=== PATIENT | male | born 1985 | race African-American/Black ===

== ENCOUNTER 2017-12-19 20:24 | Emergency (ER) | payer SELFPAY | END 2017-12-19 21:08 | disposition home or self-care (01) | LOC: ER 20:24 | DX: J20.9 Acute bronchitis, unspecified (principal); J45.909 Unspecified asthma, uncomplicated; Z88.6 Allergy status to analgesic agent | CPT/HCPCS: 99283 ==

== ENCOUNTER 2018-05-01 08:44 | Emergency (ER) | payer SELFPAY ==
[2018-05-01 09:30] LABS: ADD MAN DIFF? NO
[2018-05-01 09:34] LABS: BASO # 0.1 x10^3/uL (0.0-0.2); BASO % 1 % (0-3); EOS # 1.1 x10^3/uL (0.0-0.7); EOS % 16 % (0-3); HEMATOCRIT 40.9 % (39.0-53.0); HEMOGLOBIN 14.1 g/dL (13.0-17.5); LYMPH # 2.6 x10^3/uL (1.0-4.8); LYMPH % 38 % (24-48); MEAN CORPUSCULAR HEMOGLOBIN 30 pg (25-35); MEAN CORPUSCULAR HGB CONC 34 g/dL (31-37); MEAN CORPUSCULAR VOLUME 86 fL (79-100); MONO # 0.7 x10^3/uL (0.0-1.1); MONO % 9 % (0-9); NEUT # 2.5 x10^3uL (1.8-7.7); NEUT % 36 % (31-73); PLATELET COUNT 368 x10^3/uL (140-400); RED BLOOD COUNT 4.73 x10^6/uL (4.30-5.70); RED CELL DISTRIBUTION WIDTH 11.7 % (11.5-14.5)
[2018-05-01] MEDS: ONDANSETRON PF 4 MG/2 ML VIAL. IV (09:40)
[2018-05-01] MEDS: PANTOPRAZOLE IV PUSH 40 MG VIAL. IVP (09:40)
[2018-05-01 09:41] LABS: ANION GAP 8 (6-14); BLOOD UREA NITROGEN 9 mg/dL (8-26); BUN/CREATININE RATIO 10 (6-20); CARBON DIOXIDE 27 mmol/L (21-32); CHLORIDE 104 mmol/L (98-107); CREATININE 0.9 mg/dL (0.7-1.3); GFR 119.1; GLUCOSE 97 mg/dL (70-99); SODIUM 139 mmol/L (136-145)
[2018-05-01] MEDS: DEXAMETHASONE SOD PHOS 20 MG/5 ML VIAL. IV (09:41)
[2018-05-01 09:46] LABS: ALBUMIN 3.9 g/dL (3.4-5.0); ALK PHOS 83 U/L (46-116); ALT (SGPT) 40 U/L (16-63); AST (SGOT) 21 U/L (15-37); LIPASE 102 U/L (73-393); TOTAL BILIRUBIN 0.8 mg/dL (0.2-1.0)
[2018-05-01] MEDS: IPRATRPIUM/ALBUTEROL 0.5/2.5MG 3 ML NEBU. NEB (09:47)
[2018-05-01 09:51] LABS: BILIRUBIN,URINE NEGATIVE (NEG); CLARITY,URINE CLEAR; COLOR,URINE YELLOW; GLUCOSE,URINE NEGATIVE (NEG); NITRITE,URINE NEGATIVE (NEG); PH,URINE 5.5; PROTEIN,URINE NEGATIVE (NEG-TRACE); UROBILINOGEN,URINE 0.2 mg/dL (0.2 mg/dL)
[2018-05-01 10:05] LABS: AMPHETAMINE/METHAMPHETAMINE NEG (NEG); BARBITURATES NEG (NEG); BENZODIAZEPINES NEG (NEG); CANNABINOIDS NEG (NEG); COCAINE NEG (NEG); METHADONE NEG (NEG); OPIATES NEG (NEG); PHENCYCLIDINE NEG (NEG)
[2018-05-01 10:06] LABS: BACTERIA,URINE FEW /HPF (0-FEW); ETHANOL, URINE NEG (NEG); RBC,URINE RARE /HPF (0-2); SQUAMOUS EPITHELIAL CELL,UR OCC /LPF; WBC,URINE OCC /HPF (0-4)
[2018-05-01 11:00] LABS: % EOS 7 % (0-5); % LYMPHS 59 % (24-48); % MONOS 5 % (0-10); % SEGS 29 % (35-66); PLT ESTIMATE ADEQUATE (ADEQUATE)
== END 2018-05-01 10:23 | disposition home or self-care (01) ==
LOC: ER 08:44
DX: T62.8X1A Toxic effect of other specified noxious substances eaten as food, accidental (unintentional), initial encounter (principal); J45.901 Unspecified asthma with (acute) exacerbation; Z88.8 Allergy status to other drugs, medicaments and biological substances; Y92.89 Other specified places as the place of occurrence of the external cause
CPT/HCPCS: 36415; 74022; 80053; 80307; 81001; 83690; 85007; 85025; 94640; 96374; 96375; 99285-25; C9113; J1100; J2405; J7620

== ENCOUNTER 2018-08-16 17:13 | Emergency (ER) | payer SELFPAY ==
[~2018-08-16] VITALS: Ht 172.7 cm; Wt 99.8 kg
[~2018-08-16 17:13] MED LIST: ALBU2.5V14 NEB; AZIT250T6 PO; DICY20TA3 PO; ONDA4TAB10 SL; PRED20TA PO; PRED50TA PO; PROVENTIL HFA6.7 GM IH; VENTOLIN HFA18 GM INH
[2018-08-16 17:29] VITALS: BP 139/76
--- NOTE | 2018-08-16 18:17 | PHYS DOC ---
Past Medical History Past Medical History: Asthma, Sinusitis, Other Additional Past Medical Histor: nasal polyps Past Surgical History: Other Additional Past Surgical Histo: nasal polyp removal Alcohol Use: Occasionally Drug Use: None Adult General Chief Complaint Chief Complaint: SORE THROAT HPI HPI Patient is a 33 year old AA male who presents to the ER with complaints of cough, congestion, and sore throat for the last week. Pt denies shortness of breath states that the cough is dry. He denies any measured fever but has felt hot at times. He denies any nausea, vomiting, abdominal pain, or rash. States that his left ear also hurts. Review of Systems Review of Systems Constitutional: reported tactile fever Eyes: Denies change in visual acuity, redness, or eye pain [] HENT: See HPI Respiratory: reports dry cough, denies SOA, reports mild wheezing Cardiovascular: No additional information not addressed in HPI [] GI: Denies abdominal pain, nausea, vomiting, or diarrhea [] Musculoskeletal: Denies back pain or joint pain [] Integument: Denies rash or skin lesions [] Neurologic: Denies headache, focal weakness or sensory changes [] All other systems were reviewed and found to be within normal limits, except as documented in this note. Current Medications Current Medications Current Medications Medications (Trade) Dose Ordered Sig/Yoshi Start Time Stop Time Status Last Admin Dose Admin Albuterol Sulfate (Ventolin Neb Soln) 2.5 mg 1X ONCE 08/16/18 18:30 08/16/18 18:31 DC 08/16/18 18:54 2.5 MG Allergies Allergies Allergies Coded Allergies Type Severity Reaction Last Updated Verified NSAIDS (Non-Steroidal Anti-Inflamma Allergy Severe SOA 03/31/14 No Physical Exam Physical Exam Constitutional: Well developed, well nourished, no acute distress, non-toxic appearance, obese. [] HENT: Normocephalic, atraumatic, bilateral external ears normal, bilateral TMs normal, tonsils 1+ no erythema, cobble stone appearance of posterior pharynx with post-nasal drainage. oropharynx moist, no oral exudates, nose normal. [] Eyes: PERRLA, conjunctiva normal, no discharge. [] Neck: Normal range of motion, no tenderness, supple, no stridor. [] Cardiovascular:Heart rate regular rhythm, no murmur [] Lungs & Thorax: Bilateral breath sounds scattered expiratory wheezes throughout , diminished in posterior bases bilat Skin: Warm, dry, no erythema, no rash. [] Extremities: No cyanosis, no clubbing, ROM intact, no edema. [] Neurologic: Alert and oriented X 3, normal motor function, normal sensory function, no focal deficits noted. [] Psychologic: Affect normal, judgement normal, mood normal. [] Current Patient Data Vital Signs Vital Signs Date Time Temp Pulse Resp B/P (MAP) Pulse Ox O2 Delivery O2 Flow Rate FiO2 08/16/18 18:55 Room Air 08/16/18 17:29 98.8 88 16 139/76 (97) 96 98.8 EKG EKG [] Radiology/Procedures Radiology/Procedures Pt's lung sounds CTA after breathing tx.[] Course & Med Decision Making Course & Med Decision Making Pertinent Labs and Imaging studies reviewed. (See chart for details) Dx: pharyngiits, bronchitis prescriptions for proair MDI, tessalon perrles, and prednisone 50 mg PO x5 days. Avoid airway irritants, increase clear fluids, use cool mist humidifier. Follow up with PCP in 1-2 days, return to ER if sx worsen. [] Dragon Disclaimer Dragon Disclaimer This electronic medical record was generated, in whole or in part, using a voice recognition dictation system. Departure Departure Impression: Primary Impression: Asthma exacerbation Additional Impressions: Pharyngitis, acute Bronchitis Disposition: 01 HOME, SELF-CARE Condition: STABLE Referrals: NO PCP (PCP) Patient Instructions: Acute Bronchitis, [id number], Viral and Bacterial Pharyngitis, [id number] Additional Instructions: Fill prescription(s) and use as directed. Cool mist humidifier in room at bedtime. Tylenol or ibuprofen prn pain/fever. Increase clear fluids. Avoid triggers such as smoke, fragrance, dust, and pollen. Follow-up with your primary care doctor in 1-2 days. Return to the emergency room if symptoms worsen. Scripts Prednisone (PREDNISONE) 50 Mg Tablet 1 TAB PO DAILY for 5 Days, #5 TAB 0 Refills Prov: COTY BENNETT APRN 08/16/18 Albuterol Sulfate (PROAIR HFA INHALER) 8.5 Gm Hfa.aer.ad 1-2 PUFF INH PRN Q6HRS PRN for SHORTNESS OF BREATH for 30 Days, #1 INHALER 1 Refill Prov: COTY BENNETT FURNACE INSTALLER 08/16/18 Benzonatate (TESSALON PERLE) 100 Mg Capsule 100 MG PO TID PRN for COUGH for 3 Days, #21 CAP 0 Refills Prov: COTY BENNETT FURNACE INSTALLER 08/16/18 Problem Qualifiers Primary Impression: Asthma exacerbation Asthma severity: mild Asthma persistence: intermittent Qualified Codes: J45.21 - Mild intermittent asthma with (acute) exacerbation Additional Impressions: Pharyngitis, acute Pharyngitis/tonsillitis etiology: unspecified etiology Qualified Codes: J02.9 - Acute pharyngitis, unspecified COTY BENNETT FURNACE INSTALLER Aug 16, 2018 18:17
[2018-08-16] MEDS ORDERED: ALBUTEROL SULFATE 2.5 MG/3 ML NEBU. NEB ONE (18:30)
[2018-08-16] MEDS ORDERED: PROAIR HFA8.5 GM INH (19:16)
[2018-08-16] MEDS ORDERED: BENZ100C PO (19:16)
[2018-08-16] MEDS ORDERED: PRED50TA PO (19:16)
== END 2018-08-16 19:23 | disposition home or self-care (01) ==
LOC: ER 17:13
DX: J45.21 Mild intermittent asthma with (acute) exacerbation (principal); Z88.6 Allergy status to analgesic agent
CPT/HCPCS: 87070; 87880; 94640; 99283; J7613

== ENCOUNTER 2018-08-21 01:11 | Emergency (ER) | payer SELFPAY ==
[~2018-08-21] VITALS: Ht 83.8 cm; Wt 99.8 kg
[~2018-08-21 01:11] MED LIST changes: +BENZ100C PO; +PROAIR HFA8.5 GM INH
[2018-08-21 01:22] VITALS: BP 150/87
[2018-08-21] MEDS ORDERED: GUAI-40 PO (01:43)
--- NOTE | 2018-08-21 06:17 | PHYS DOC ---
Past Medical History Past Medical History: Asthma, Sinusitis, Other Additional Past Medical Histor: nasal polyps Past Surgical History: Other Additional Past Surgical Histo: nasal polyp removal Alcohol Use: Occasionally Drug Use: None Adult General Chief Complaint Chief Complaint: SORE THROAT HPI HPI Patient is a 33 year old AA with history of asthma, recurrent sinusitis who presents with nasal congestion, rhinorrhea and sore throat prior to ED arrival. Patient states he has sleep apnea any sometimes awake feeling that he is gagging on phlegm which is occurred prior to ED arrival. Reports cough, some for dizziness this and increased sinus drainage. No fever chills, nausea vomiting or sweats. Denies any wheezing. [] Review of Systems Review of Systems Review symptoms as per history of present illness. All other review symptoms are negative. All other systems were reviewed and found to be within normal limits, except as documented in this note. Allergies Allergies Allergies Coded Allergies Type Severity Reaction Last Updated Verified NSAIDS (Non-Steroidal Anti-Inflamma Allergy Severe SOA 03/31/14 No Physical Exam Physical Exam Constitutional: Well developed, well nourished, no acute distress, non-toxic appearance. [] HENT: Normocephalic, atraumatic, bilateral external ears normal, oropharynx moist, no oral exudates, nose, congestion, inflamed mucosa with clear rhinorrhea [] Eyes: PERRLA, EOMI, conjunctiva normal, no discharge. [] Neck: Normal range of motion, no tenderness, supple, no stridor. [] Cardiovascular:Heart rate regular rhythm, no murmur [] Lungs & Thorax: Bilateral breath sounds clear to auscultation [] Abdomen: Bowel sounds normal, soft, no tenderness, no masses, no pulsatile masses. [] Skin: Warm, dry, no erythema, no rash. [] Back: No tenderness, no CVA tenderness. [] Extremities: No tenderness, no cyanosis, no clubbing, ROM intact, no edema. [] Neurologic: Alert and oriented X 3, normal motor function, normal sensory function, no focal deficits noted. [] Psychologic: Affect normal, judgement normal, mood normal. [] Current Patient Data Vital Signs Vital Signs Date Time Temp Pulse Resp B/P (MAP) Pulse Ox O2 Delivery O2 Flow Rate FiO2 08/21/18 01:22 98.7 77 16 150/87 (108) 97 Room Air 98.7 EKG EKG [] Radiology/Procedures Radiology/Procedures [] Course & Med Decision Making Course & Med Decision Making Pertinent Labs and Imaging studies reviewed. (See chart for details) [Pharyngitis with postnasal drip. Recommend supportive care with PCP follow-up.] Lovely Disclaimer Lovely Disclaimer This electronic medical record was generated, in whole or in part, using a voice recognition dictation system. Departure Departure Impression: Primary Impression: Upper respiratory infection Additional Impression: Pharyngitis, acute Disposition: HOME, SELF-CARE Condition: GOOD Patient Instructions: Upper Respiratory Infection, Adult, [id number], Sore Throat, [id number] Additional Instructions: Please continue prednisone and take Mucinex D as prescribed. Gargle salt water and take Tylenol as needed for throat pain. Follow-up with local primary care physician in 1-2 days for reevaluation.. Scripts Guaifenesin/Pseudoephedrne Hcl (MUCINEX D ER TABLET) 1 Each Tab.er.12h 1 TAB PO BID, #20 TAB Prov: HOLLY JONES DO 08/21/18 Problem Qualifiers HOLLY JONES DO Aug 21, 2018 06:17
== END 2018-08-21 01:50 | disposition home or self-care (01) ==
LOC: ER 01:11
DX: J02.9 Acute pharyngitis, unspecified (principal); J45.909 Unspecified asthma, uncomplicated; R42 Dizziness and giddiness; Z88.8 Allergy status to other drugs, medicaments and biological substances
CPT/HCPCS: 99283

== ENCOUNTER 2019-03-01 01:32 | Emergency (ER) | payer SELFPAY ==
[~2019-03-01] VITALS: Ht 172.7 cm; Wt 99.8 kg
[~2019-03-01 01:32] MED LIST changes: +ALBU2.5V8 IH; +ALBU2.5V8 INH; +FLUT1DIS3 IH; +GUAI-40 PO; +OSEL75CA PO; -PROAIR HFA8.5 GM INH; -PROVENTIL HFA6.7 GM IH
--- NOTE | 2019-03-01 02:13 | PHYS DOC ---
Past Medical History Past Medical History: Asthma Additional Past Medical Histor: FREQUENT SINUS INFECTIONS Past Surgical History: Other Additional Past Surgical Histo: NASAL POLYP REMOVAL Alcohol Use: Occasionally Drug Use: None Adult General Chief Complaint Chief Complaint: ABDOMINAL PAIN HPI HPI Patient is a 33 year old male who presents with with complaining of abdominal pain. Patient complaining of abdominal bloating for the last 6 days as a constant problem that getting force after eating and complaining of episodes of vomiting for the last 2 days. Patient states he has abdominal bloating and pressure on his chest and caused his asthma acting up for the same time. Patient complaining of shortness of breath and dry cough and chills without fever. Patient denies urinary symptoms, diarrhea and constipation, chest pain. Patient states she had the same episode of abdominal pain and asthma exacerbation previously and had negative GI evaluation. Patient doesn't have a nebulizer medication at home and took inhaler without improvement of his condition. Patient denies using drugs or smoking cigarettes. Review of Systems Review of Systems Constitutional: Denies fever or chills [] Eyes: Denies change in visual acuity, redness, or eye pain [] HENT: Denies nasal congestion or sore throat [] Respiratory: Reports cough and shortness of breath Cardiovascular: No additional information not addressed in HPI [] GI: Reports abdominal pain, nausea, vomiting, denies bloody stools or diarrhea [] : Denies dysuria or hematuria [] Musculoskeletal: Denies back pain or joint pain [] Integument: Denies rash or skin lesions [] Neurologic: Denies headache, focal weakness or sensory changes [] Endocrine: Denies polyuria or polydipsia [] All other systems were reviewed and found to be within normal limits, except as documented in this note. Current Medications Current Medications Current Medications Medications (Trade) Dose Ordered Sig/Yoshi Start Time Stop Time Status Last Admin Dose Admin Albuterol/ Ipratropium (Duoneb) 3 ml 1X ONCE 03/01/19 02:30 03/01/19 02:31 DC 03/01/19 02:30 3 ML Info (CONTRAST GIVEN -- Rx MONITORING) 1 each PRN DAILY PRN 03/01/19 03:30 03/03/19 03:29 Iohexol (Omnipaque 300 Mg/ml) 75 ml 1X ONCE 03/01/19 03:30 03/01/19 03:31 DC 03/01/19 03:26 75 ML Methylprednisolone Sodium Succinate (SOLU-Medrol 125MG VIAL) 125 mg 1X ONCE 03/01/19 02:30 03/01/19 02:31 DC 03/01/19 02:40 125 MG Sodium Chloride 1,000 ml @ 1,000 mls/hr Q1H 03/01/19 02:15 03/01/19 03:14 DC 03/01/19 02:40 1,000 MLS/HR Allergies Allergies Allergies Coded Allergies Type Severity Reaction Last Updated Verified NSAIDS (Non-Steroidal Anti-Inflamma Allergy Severe SOA 10/11/18 Yes Physical Exam Physical Exam Constitutional: Well developed, well nourished, moderate distress, non-toxic appearance. [] HENT: Normocephalic, atraumatic, oropharynx moist, no oral exudates, nose normal. [] Eyes: PERRLA, EOMI, conjunctiva normal, no discharge. [] Neck: Normal range of motion, no tenderness, supple, no stridor. [] Cardiovascular: Tachycardia, no murmur [] Lungs & Thorax: Mild respiratory distress with tachypnea, wheezing and rhonchi Abdomen: Bowel sounds hyperactive, mildly distended with gas,soft, no tenderness, no masses, no pulsatile masses. [] Skin: Warm, dry, no erythema, no rash. [] Back: No tenderness, no CVA tenderness. [] Extremities: No tenderness, no cyanosis, no clubbing, ROM intact, no edema. [] Neurologic: Alert and oriented X 3, normal motor function, normal sensory function, no focal deficits noted. [] Psychologic: Affect normal, judgement normal, mood normal. [] Current Patient Data Vital Signs Vital Signs Date Time Temp Pulse Resp B/P (MAP) Pulse Ox O2 Delivery O2 Flow Rate FiO2 03/01/19 02:32 94 Nasal Cannula 1.0 03/01/19 01:42 98.2 119 26 123/92 (102) 98.2 Lab Values Laboratory Tests Test 03/01/19 02:25 03/01/19 03:05 White Blood Count 7.9 x10^3/uL (4.0-11.0) Red Blood Count 4.40 x10^6/uL (4.30-5.70) Hemoglobin 12.6 g/dL (13.0-17.5) L Hematocrit 37.3 % (39.0-53.0) L Mean Corpuscular Volume 85 fL (79-100) Mean Corpuscular Hemoglobin 29 pg (25-35) Mean Corpuscular Hemoglobin Concent 34 g/dL (31-37) Red Cell Distribution Width 12.3 % (11.5-14.5) Platelet Count 482 x10^3/uL (140-400) H Neutrophils (%) (Auto) 31 % (31-73) Lymphocytes (%) (Auto) 43 % (24-48) Monocytes (%) (Auto) 6 % (0-9) Eosinophils (%) (Auto) 18 % (0-3) H Basophils (%) (Auto) 1 % (0-3) Neutrophils # (Auto) 2.4 x10^3uL (1.8-7.7) Lymphocytes # (Auto) 3.4 x10^3/uL (1.0-4.8) Monocytes # (Auto) 0.5 x10^3/uL (0.0-1.1) Eosinophils # (Auto) 1.4 x10^3/uL (0.0-0.7) H Basophils # (Auto) 0.1 x10^3/uL (0.0-0.2) Sodium Level 142 mmol/L (136-145) Potassium Level 3.8 mmol/L (3.5-5.1) Chloride Level 106 mmol/L (98-107) Carbon Dioxide Level 24 mmol/L (21-32) Anion Gap 12 (6-14) Blood Urea Nitrogen 14 mg/dL (8-26) Creatinine 1.0 mg/dL (0.7-1.3) Estimated GFR (Cockcroft-Gault) 104.8 BUN/Creatinine Ratio 14 (6-20) Glucose Level 117 mg/dL (70-99) H Lactic Acid Level 1.5 mmol/L (0.4-2.0) Calcium Level 8.7 mg/dL (8.5-10.1) Total Bilirubin 0.2 mg/dL (0.2-1.0) Aspartate Amino Transferase (AST) 22 U/L (15-37) Alanine Aminotransferase (ALT) 51 U/L (16-63) Alkaline Phosphatase 83 U/L (46-116) Creatine Kinase 254 U/L (39-308) Total Protein 7.7 g/dL (6.4-8.2) Albumin 3.2 g/dL (3.4-5.0) L Albumin/Globulin Ratio 0.7 (1.0-1.7) L Lipase 93 U/L (73-393) Urine Collection Type Void Urine Color Yellow Urine Clarity Clear Urine pH 5.5 Urine Specific [place] 1.025 Urine Protein Negative mg/dL (NEG-TRACE) Urine Glucose (UA) Negative mg/dL (NEG) Urine Ketones (Stick) Negative mg/dL (NEG) Urine Blood Negative (NEG) Urine Nitrite Negative (NEG) Urine Bilirubin Negative (NEG) Urine Urobilinogen Dipstick 0.2 mg/dL (0.2 mg/dL) Urine Leukocyte Esterase Negative (NEG) Urine RBC Occ /HPF (0-2) Urine WBC 1-4 /HPF (0-4) Urine Squamous Epithelial Cells Few /LPF Urine Bacteria 0 /HPF (0-FEW) Urine Cellular Casts Occ /HPF Urine Hyaline Casts Moderate /HPF Urine Granular Casts Few /HPF Urine Mucus Mod /LPF Urine Opiates Screen Neg (NEG) Urine Methadone Screen Neg (NEG) Urine Barbiturates Neg (NEG) Urine Phencyclidine Screen Neg (NEG) Urine Amphetamine/Methamphetamine Neg (NEG) Urine Benzodiazepines Screen Neg (NEG) Urine Cocaine Screen Neg (NEG) Urine Cannabinoids Screen Neg (NEG) Urine Ethyl Alcohol Neg (NEG) Laboratory Tests 03/01/19 02:25 Laboratory Tests 03/01/19 02:25 EKG EKG [] Radiology/Procedures Radiology/Procedures [facility] [address], [place] [id number] IMAGING REPORT Signed PATIENT: DOUGLAS CARPENTER ACCOUNT: [id number] : 1985 LOCATION: ER AGE: 33 SEX: M EXAM STATUS: REG ER ORD. PHYSICIAN: KARRIE DUGAN MD REASON: shortness of breath and abdominal pain PROCEDURE: CT ABD PELV W/ IV CONTRST ONLY PQRS Compliance statement: One or more of the following individualized dose reduction techniques were utilized for this examination: 1. Automated exposure control. 2. Adjustment of the mA and/or kV according to patient size. 3. Use of iterative reconstruction technique. Indication:Shortness of breath and abdominal pain TECHNIQUE: CT abdomen and pelvis with IV contrast with multiplanar reformats. COMPARISON: None FINDINGS: Heart is normal in size. No pericardial or pleural effusion. Clear lung bases. Liver, spleen, gallbladder, pancreas, adrenals and kidneys within normal limits. No free pelvic fluid or ascites. No enlarged retroperitoneal or pelvic adenopathy. No bowel obstruction. Normal appendix. The prostate and seminal vesicles show no large mass. Urinary bladder demonstrates no radiopaque stone. No pneumoperitoneum. No suspicious bony lesion. IMPRESSION: No acute findings. Electronically signed by: Rancho Mcmahon DO (03/01/2019 3:31 AM) [facility] DICTATED and SIGNED BY: RANCHO MCMAHON DO DATE: 03/01/19 033 Chest x-ray interpreted by me and did not show acute change compared to previous x-ray. Course & Med Decision Making Course & Med Decision Making Pertinent Labs and Imaging studies reviewed. (See chart for details) Evaluation of patient in ER showed 33-year-old male patient with complaining of abdominal pain and asthma attack. Patient had O2 sat of 91% at room air that improved to 94% with 2 L of oxygen. Patient had unremarkable abdominal exam and labs and chest x-ray and CT of abdomen. Patient felt better with treatment in ER and his O2 sat was 94% without oxygen. Plan discharge patient home to diagnose of asthma exacerbation. Dragon Disclaimer Dragon Disclaimer This electronic medical record was generated, in whole or in part, using a voice recognition dictation system. Departure Departure Impression: Primary Impression: Asthma exacerbation Additional Impressions: Abdominal pain Anxiety Disposition: 01 HOME, SELF-CARE (at 0355) Condition: IMPROVED Referrals: NO PCP (PCP) Patient Instructions: Abdominal Pain, Anxiety and Panic Attacks, Asthma Attacks, Prevention, Asthma, Acute Bronchospasm Additional Instructions: Drink plenty of liquids Follow-up with your primary care physician in 3-5 days Return to ER if not getting better Scripts Ranitidine Hcl (ZANTAC) 150 Mg Tablet 1 TAB PO BID, #14 TAB Prov: KARRIE DUGAN MD 03/01/19 Albuterol Sulfate (PROAIR HFA INHALER) 8.5 Gm Hfa.aer.ad 2 PUFF INH PRN Q6HRS PRN for SHORTNESS OF BREATH, #1 INHALER 0 Refills Prov: KARRIE DUGAN MD 03/01/19 Methylprednisolone (MEDROL) 4 Mg Tab.ds.pk 1 PKG PO UD for inflammation, #1 PKG Prov: KARRIE DUGAN MD 03/01/19 Albuterol Sulfate (ALBUTEROL SULFATE NEB SOLN) 2.5 Mg/3 Ml Vial.neb 1 VIAL NEB Q6HRS PRN for SHORTNESS OF BREATH, #25 VIAL Prov: KARRIE DUGAN MD 03/01/19 Problem Qualifiers Primary Impression: Asthma exacerbation Asthma severity: moderate Asthma persistence: unspecified Qualified Codes: J45.901 - Unspecified asthma with (acute) exacerbation Additional Impressions: Abdominal pain Abdominal location: unspecified location Qualified Codes: R10.9 - Unspecified abdominal pain KARRIE DUGAN MD March 01, 2019 02:13
[2019-03-01] MEDS ORDERED: IV NORMAL SALINE 1000ML BAG 1,000 ML IV SCH (02:15)
[2019-03-01] MEDS ORDERED: IPRATRPIUM/ALBUTEROL 0.5/2.5MG 3 ML NEBU. NEB ONE (02:30)
[2019-03-01] MEDS ORDERED: methylPREDNISolone SOD SUCC PF 125 MG/2 ML VIAL. IV ONE (02:30)
[2019-03-01 02:43] LABS: BASO # 0.1 x10^3/uL (0.0-0.2); BASO % 1 % (0-3); EOS # 1.4 x10^3/uL (0.0-0.7); EOS % 18 % (0-3); HEMATOCRIT 37.3 % (39.0-53.0); HEMOGLOBIN 12.6 g/dL (13.0-17.5); LYMPH # 3.4 x10^3/uL (1.0-4.8); LYMPH % 43 % (24-48); MEAN CORPUSCULAR HEMOGLOBIN 29 pg (25-35); MEAN CORPUSCULAR HGB CONC 34 g/dL (31-37); MEAN CORPUSCULAR VOLUME 85 fL (79-100); MONO # 0.5 x10^3/uL (0.0-1.1); MONO % 6 % (0-9); NEUT # 2.4 x10^3uL (1.8-7.7); NEUT % 31 % (31-73); PLATELET COUNT 482 x10^3/uL (140-400); RED CELL DISTRIBUTION WIDTH 12.3 % (11.5-14.5); WHITE BLOOD COUNT 7.9 x10^3/uL (4.0-11.0)
[2019-03-01 02:54] LABS: CALCIUM 8.7 mg/dL (8.5-10.1); GFR 104.8; POTASSIUM 3.8 mmol/L (3.5-5.1)
[2019-03-01 03:00] LABS: ALBUMIN 3.2 g/dL (3.4-5.0); ALBUMIN/GLOBULIN RATIO 0.7 (1.0-1.7); TOTAL BILIRUBIN 0.2 mg/dL (0.2-1.0); TOTAL PROTEIN 7.7 g/dL (6.4-8.2)
[2019-03-01 03:17] LABS: BILIRUBIN,URINE NEGATIVE (NEG); CLARITY,URINE CLEAR; COLOR,URINE YELLOW; NITRITE,URINE NEGATIVE (NEG); PH,URINE 5.5; PROTEIN,URINE NEGATIVE (NEG-TRACE); UROBILINOGEN,URINE 0.2 mg/dL (0.2 mg/dL)
[2019-03-01 03:22] LABS: BARBITURATES NEG (NEG); BENZODIAZEPINES NEG (NEG); CANNABINOIDS NEG (NEG); COCAINE NEG (NEG); METHADONE NEG (NEG); OPIATES NEG (NEG); PHENCYCLIDINE NEG (NEG)
[2019-03-01 03:24] LABS: AMPHETAMINE/METHAMPHETAMINE NEG (NEG)
[2019-03-01 03:26] LABS: BACTERIA,URINE 0 /HPF (0-FEW); HYALINE CASTS, URINE MODERATE /HPF; RBC,URINE OCC /HPF (0-2); SQUAMOUS EPITHELIAL CELL,UR FEW /LPF
[2019-03-01 03:27] LABS: GRANULAR CASTS,URINE FEW /HPF
[2019-03-01] MEDS ORDERED: CONTRAST GIVEN. MC PRN (03:30)
[2019-03-01] MEDS ORDERED: IOHEXOL 300 MG/ML 100ML VIAL. IV ONE (03:30)
--- NOTE | 2019-03-01 03:34 | RAD ---
PQRS Compliance statement: One or more of the following individualized dose reduction techniques were utilized for this examination: 1. Automated exposure control. 2. Adjustment of the mA and/or kV according to patient size. 3. Use of iterative reconstruction technique. Indication:Shortness of breath and abdominal pain TECHNIQUE: CT abdomen and pelvis with IV contrast with multiplanar reformats. COMPARISON: None FINDINGS: Heart is normal in size. No pericardial or pleural effusion. Clear lung bases. Liver, spleen, gallbladder, pancreas, adrenals and kidneys within normal limits. No free pelvic fluid or ascites. No enlarged retroperitoneal or pelvic adenopathy. No bowel obstruction. Normal appendix. The prostate and seminal vesicles show no large mass. Urinary bladder demonstrates no radiopaque stone. No pneumoperitoneum. No suspicious bony lesion. IMPRESSION: No acute findings. Electronically signed by: Rancho Velasco DO (03/01/2019 3:31 AM) [facility]
[2019-03-01 03:37] VITALS: BP 125/73
[2019-03-01] MEDS ORDERED: METH4TAB2 PO (03:58)
[2019-03-01] MEDS ORDERED: RANI-376 PO (03:58)
[2019-03-01] MEDS ORDERED: ALBU2.5V8 INH (03:58)
[2019-03-01] MEDS ORDERED: ALBU2.5V5 NEB (03:58)
--- NOTE | 2019-03-01 08:05 | RAD ---
CHEST PA LATERAL History: Shortness of breath, abdominal pain Comparison: October 09, 2018; May 09, 2010. Findings: 2 views of the chest are submitted. There is no new lobar consolidation, pleural fluid, pneumothorax. Heart size is stable, within normal limits. Some fullness of the hilar regions bilaterally is similar dating back to 2009 exam. Impression: 1. No acute radiographic abnormality is identified. Electronically signed by: Tonny Rodriguez MD (03/01/2019 8:02 AM) [facility]
== END 2019-03-01 04:10 | disposition home or self-care (01) ==
LOC: ER 01:32
DX: J45.901 Unspecified asthma with (acute) exacerbation (principal); F41.9 Anxiety disorder, unspecified; R14.0 Abdominal distension (gaseous); R00.0 Tachycardia, unspecified; R06.03 Acute respiratory distress; R11.2 Nausea with vomiting, unspecified; Z88.8 Allergy status to other drugs, medicaments and biological substances
CPT/HCPCS: 36415; 71046; 74177; 80053; 80307; 81001; 82550; 83605; 83690; 85025; 87040; 94640; 96361; 96374; 99285; J2930; J7030; J7620; Q9967

== ENCOUNTER 2019-04-09 16:42 | Emergency (ER) | payer SELFPAY ==
[~2019-04-09] VITALS: Ht 172.7 cm; Wt 99.8 kg
[~2019-04-09 16:42] MED LIST changes: +ALBU2.5V5 NEB; +METH4TAB2 PO; +RANI-376 PO
[2019-04-09 18:01] LABS: BASO # 0.1 x10^3/uL (0.0-0.2); BASO % 1 % (0-3); EOS # 1.3 x10^3/uL (0.0-0.7); EOS % 15 % (0-3); HEMATOCRIT 37.4 % (39.0-53.0); HEMOGLOBIN 12.7 g/dL (13.0-17.5); LYMPH # 3.4 x10^3/uL (1.0-4.8); LYMPH % 40 % (24-48); MEAN CORPUSCULAR HEMOGLOBIN 30 pg (25-35); MEAN CORPUSCULAR HGB CONC 34 g/dL (31-37); MEAN CORPUSCULAR VOLUME 87 fL (79-100); MONO # 0.7 x10^3/uL (0.0-1.1); MONO % 8 % (0-9); NEUT # 2.9 x10^3uL (1.8-7.7); NEUT % 35 % (31-73); PLATELET COUNT 419 x10^3/uL (140-400); RED BLOOD COUNT 4.29 x10^6/uL (4.30-5.70); RED CELL DISTRIBUTION WIDTH 13.2 % (11.5-14.5); WHITE BLOOD COUNT 8.4 x10^3/uL (4.0-11.0)
[2019-04-09] MEDS ORDERED: methylPREDNISolone SOD SUCC PF 125 MG/2 ML VIAL. IV ONE (18:15)
[2019-04-09] MEDS ORDERED: IPRATRPIUM/ALBUTEROL 0.5/2.5MG 3 ML NEBU. NEB ONE (18:15)
[2019-04-09 18:17] LABS: CALCIUM 9.2 mg/dL (8.5-10.1); CREATININE 0.9 mg/dL (0.7-1.3); GFR 118.3; POTASSIUM 3.6 mmol/L (3.5-5.1)
[2019-04-09 18:29] LABS: ALBUMIN 3.6 g/dL (3.4-5.0); ALBUMIN/GLOBULIN RATIO 0.9 (1.0-1.7); MAGNESIUM 1.7 mg/dL (1.8-2.4); TOTAL BILIRUBIN 0.6 mg/dL (0.2-1.0); TOTAL PROTEIN 7.6 g/dL (6.4-8.2)
[2019-04-09 19:26] LABS: BILIRUBIN,URINE NEGATIVE (NEG); CLARITY,URINE CLEAR; COLOR,URINE YELLOW; NITRITE,URINE NEGATIVE (NEG); PH,URINE 5.5; PROTEIN,URINE NEGATIVE (NEG-TRACE); UROBILINOGEN,URINE 0.2 mg/dL (0.2 mg/dL)
[2019-04-09 19:33] LABS: BACTERIA,URINE 0 /HPF (0-FEW); RBC,URINE 0 /HPF (0-2); WBC,URINE 0 /HPF (0-4)
[2019-04-09] MEDS ORDERED: PRED50TA PO (19:48)
[2019-04-09] MEDS ORDERED: DOXY100C14 PO (19:48)
[2019-04-09] MEDS ORDERED: ALBU2.5V5 NEB (19:48)
--- NOTE | 2019-04-09 19:49 | PHYS DOC ---
Past Medical History Past Medical History: Asthma Additional Past Medical Histor: FREQUENT SINUS INFECTIONS Past Surgical History: Other Additional Past Surgical Histo: NASAL POLYP REMOVAL Alcohol Use: Occasionally Drug Use: None Adult General Chief Complaint Chief Complaint: ABDOMINAL PAIN HPI HPI Patient is a 33 year old [f__sex] who presents with [] Review of Systems Review of Systems Constitutional: Denies fever or chills [] Eyes: Denies change in visual acuity, redness, or eye pain [] HENT: Denies nasal congestion or sore throat [] Respiratory: Denies cough or shortness of breath [] Cardiovascular: No additional information not addressed in HPI [] GI: Denies abdominal pain, nausea, vomiting, bloody stools or diarrhea [] : Denies dysuria or hematuria [] Musculoskeletal: Denies back pain or joint pain [] Integument: Denies rash or skin lesions [] Neurologic: Denies headache, focal weakness or sensory changes [] Endocrine: Denies polyuria or polydipsia [] All other systems were reviewed and found to be within normal limits, except as documented in this note. Current Medications Current Medications Current Medications Medications (Trade) Dose Ordered Sig/Yoshi Start Time Stop Time Status Last Admin Dose Admin Albuterol/ Ipratropium (Duoneb) 3 ml 1X ONCE 04/09/19 18:15 04/09/19 18:16 DC 04/09/19 18:19 3 ML Methylprednisolone Sodium Succinate (SOLU-Medrol 125MG VIAL) 125 mg 1X ONCE 04/09/19 18:15 04/09/19 18:16 DC 04/09/19 18:09 125 MG Multi-Ingredient Mouthwash/Gargle (Gi Cocktail) 20 ml 1X ONCE 04/09/19 20:00 04/09/19 20:01 DC 04/09/19 20:01 20 ML Allergies Allergies Allergies Coded Allergies Type Severity Reaction Last Updated Verified NSAIDS (Non-Steroidal Anti-Inflamma Allergy Severe SOA 10/11/18 Yes Physical Exam Physical Exam Constitutional: Well developed, well nourished, no acute distress, non-toxic appearance. [] HENT: Normocephalic, atraumatic, bilateral external ears normal, oropharynx moist, no oral exudates, nose normal. [] Eyes: PERRLA, EOMI, conjunctiva normal, no discharge. [] Neck: Normal range of motion, no tenderness, supple, no stridor. [] Cardiovascular:Heart rate regular rhythm, no murmur [] Lungs & Thorax: Bilateral breath sounds clear to auscultation [] Abdomen: Bowel sounds normal, soft, no tenderness, no masses, no pulsatile masses. [] Skin: Warm, dry, no erythema, no rash. [] Back: No tenderness, no CVA tenderness. [] Extremities: No tenderness, no cyanosis, no clubbing, ROM intact, no edema. [] Neurologic: Alert and oriented X 3, normal motor function, normal sensory function, no focal deficits noted. [] Psychologic: Affect normal, judgement normal, mood normal. [] Current Patient Data Vital Signs Vital Signs Date Time Temp Pulse Resp B/P (MAP) Pulse Ox O2 Delivery O2 Flow Rate FiO2 04/09/19 20:00 86 20 145/91 (109) 95 Room Air 04/09/19 17:40 97.8 97.8 Lab Values Laboratory Tests Test 04/09/19 17:33 04/09/19 19:10 White Blood Count 8.4 x10^3/uL (4.0-11.0) Red Blood Count 4.29 x10^6/uL (4.30-5.70) L Hemoglobin 12.7 g/dL (13.0-17.5) L Hematocrit 37.4 % (39.0-53.0) L Mean Corpuscular Volume 87 fL (79-100) Mean Corpuscular Hemoglobin 30 pg (25-35) Mean Corpuscular Hemoglobin Concent 34 g/dL (31-37) Red Cell Distribution Width 13.2 % (11.5-14.5) Platelet Count 419 x10^3/uL (140-400) H Neutrophils (%) (Auto) 35 % (31-73) Lymphocytes (%) (Auto) 40 % (24-48) Monocytes (%) (Auto) 8 % (0-9) Eosinophils (%) (Auto) 15 % (0-3) H Basophils (%) (Auto) 1 % (0-3) Neutrophils # (Auto) 2.9 x10^3uL (1.8-7.7) Lymphocytes # (Auto) 3.4 x10^3/uL (1.0-4.8) Monocytes # (Auto) 0.7 x10^3/uL (0.0-1.1) Eosinophils # (Auto) 1.3 x10^3/uL (0.0-0.7) H Basophils # (Auto) 0.1 x10^3/uL (0.0-0.2) Sodium Level 141 mmol/L (136-145) Potassium Level 3.6 mmol/L (3.5-5.1) Chloride Level 106 mmol/L (98-107) Carbon Dioxide Level 26 mmol/L (21-32) Anion Gap 9 (6-14) Blood Urea Nitrogen 15 mg/dL (8-26) Creatinine 0.9 mg/dL (0.7-1.3) Estimated GFR (Cockcroft-Gault) 118.3 BUN/Creatinine Ratio 17 (6-20) Glucose Level 84 mg/dL (70-99) Calcium Level 9.2 mg/dL (8.5-10.1) Magnesium Level 1.7 mg/dL (1.8-2.4) L Total Bilirubin 0.6 mg/dL (0.2-1.0) Aspartate Amino Transferase (AST) 16 U/L (15-37) Alanine Aminotransferase (ALT) 29 U/L (16-63) Alkaline Phosphatase 77 U/L (46-116) Troponin I Quantitative < 0.017 ng/mL (0.000-0.055) Total Protein 7.6 g/dL (6.4-8.2) Albumin 3.6 g/dL (3.4-5.0) Albumin/Globulin Ratio 0.9 (1.0-1.7) L Lipase 157 U/L (73-393) Urine Collection Type Unknown Urine Color Yellow Urine Clarity Clear Urine pH 5.5 Urine Specific [place] 1.025 Urine Protein Negative mg/dL (NEG-TRACE) Urine Glucose (UA) Negative mg/dL (NEG) Urine Ketones (Stick) Negative mg/dL (NEG) Urine Blood Negative (NEG) Urine Nitrite Negative (NEG) Urine Bilirubin Negative (NEG) Urine Urobilinogen Dipstick 0.2 mg/dL (0.2 mg/dL) Urine Leukocyte Esterase Negative (NEG) Urine RBC 0 /HPF (0-2) Urine WBC 0 /HPF (0-4) Urine Bacteria 0 /HPF (0-FEW) Urine Mucus Marked /LPF Laboratory Tests 04/09/19 17:33 Laboratory Tests 04/09/19 17:33 EKG EKG [] Radiology/Procedures Radiology/Procedures [] Course & Med Decision Making Course & Med Decision Making Pertinent Labs and Imaging studies reviewed. (See chart for details) 1920: Pt's chest xray was viewed by Dr. Alba molina. atypical pneumonia pattern in lower lobes. Discussed was discussed with patient. On reevaluation following 2 DuoNeb treatments and dose of IV Solu-Medrol patient has clear bilateral lung sounds. Patient is in no visible distress. Patient does continue to complain of mid epigastric discomfort again discussed possible relation to his ongoing coughing episodes and use of accessory muscles. Patient would like something for his GI pain so will provide GI cocktail and patient advised if he continues to have concerns for GI issues or ongoing symptoms he should follow-up with a GI doctor. Will provide referral information on discharge paperwork. Discussed lab results. Discussed plans for home discharge with prescription for doxycycline, prednisone, and nebulizer solution. Patient advised on need to establish primary care physician for ongoing care. Will provide community clinic and physician resources sheet. Patient requested work note for tomorrow we will provide this as well. Patient is nontoxic in appearance with stable vital signs.Education provided on signs and symptoms to return to ER. Discharge instructions were discussed. Patient to follow-up with primary care physician if symptoms persist or with any concerns. Dragon Disclaimer Dragon Disclaimer This electronic medical record was generated, in whole or in part, using a voice recognition dictation system. Departure Departure Impression: Primary Impression: Pneumonia Additional Impression: Abdominal pain Disposition: HOME, SELF-CARE Condition: STABLE Referrals: NO PCP (PCP) Patient Instructions: Abdominal Pain (Nonspecific), Pneumonia, Adult Additional Instructions: Drink plenty of fluids. If symptoms persist follow-up with a primary care physician for reevaluation and further care. If stomach issues persist follow-up with either a primary care physician and or a gastrointestinal doctor. Scripts Albuterol Sulfate (ALBUTEROL SULFATE NEB SOLN) 2.5 Mg/3 Ml Vial.neb 1 VIAL NEB PRN Q4HRS PRN for COUGH, #50 VIAL 0 Refills Prov: MUKUND GILLTETE SCREEDMAN/LABORER 04/09/19 Prednisone (PREDNISONE) 50 Mg Tablet 1 TAB PO DAILY, #4 TAB 0 Refills Start 04/10/19 Prov: MUKUND GILLETTE APRN 04/09/19 Doxycycline Monohydrate (DOXYCYCLINE MONOHYDRATE) 100 Mg Capsule 1 CAP PO BID, #14 CAP 0 Refills Prov: MUKUND GILLETTE APRN 04/09/19 Problem Qualifiers MUKUND GILLETTE APRN Apr 09, 2019 19:49
[2019-04-09 20:00] VITALS: BP 145/91
[2019-04-09] MEDS ORDERED: LIDO:MAALOX 1:1 20 ML SINGLE DOSE. SWSW ONE (20:00)
--- NOTE | 2019-04-09 21:57 | RAD ---
PA and lateral chest. HISTORY: Cough, asthma PA and lateral views were taken of the chest. Lungs are free of confluent infiltrates. There is slight prominence of the liliam on each side unchanged from old studies. There is no effusion. Heart is normal in size. Mediastinum is not widened. IMPRESSION: 1. Mild prominence of the hilum unchanged from old studies. 2. No acute infiltrates. Electronically signed by: Yonatan Chavez MD (04/09/2019 9:54 PM) [facility]
--- NOTE | 2019-04-10 06:15 | EKG ---
[facility] [address] [place] [address] Test Date: 2019-04-09 Test Time: 18:26:17 Pat Name: DOUGLAS CARPENTER Department: Room: Gender: M [employer] Plant Operator: : [id number] Requested By: MUKUND GILLETTE Order Number: [id number] Reading MD: Measurements Intervals [place] Rate: 75 P: 60 MT: 168 QRS: 14 QRSD: 92 T: 15 QT: 382 QTc: 429 Interpretive Statements SINUS RHYTHM QRS(T) CONTOUR ABNORMALITY CONSIDER ANTEROLATERAL MYOCARDIAL DAMAGE POSSIBLY ABNORMAL ECG RI6.01 Unconfirmed report No previous ECG available for comparison
== END 2019-04-09 20:02 | disposition home or self-care (01) ==
LOC: ER 16:42
DX: J18.9 Pneumonia, unspecified organism (principal); R10.13 Epigastric pain; J45.909 Unspecified asthma, uncomplicated; Z88.8 Allergy status to other drugs, medicaments and biological substances
CPT/HCPCS: 36415; 71046; 80053; 81001; 83690; 83735; 84484; 85025; 93005; 94640; 96374; 99285; J2930; J7620

== ENCOUNTER 2019-06-17 22:33 | Emergency (ER) | payer SELFPAY ==
[~2019-06-17] VITALS: Ht 172.7 cm; Wt 97.5 kg
[~2019-06-17 22:33] MED LIST changes: +DOXY100C14 PO
--- NOTE | 2019-06-17 22:42 | PHYS DOC ---
Past Medical History Past Medical History: Asthma Additional Past Medical Histor: FREQUENT SINUS INFECTIONS (ANGELO RODRIGES APRN) Past Surgical History: Other Additional Past Surgical Histo: NASAL POLYP REMOVAL (ANGELO RODRIGES APRN) Alcohol Use: Occasionally Drug Use: None (ANGELO RODRIGES APRN) Adult General Chief Complaint Chief Complaint: ASTHMA HPI HPI Patient is a 33 year old male with history of asthma who presents to the ED today complaining of chest tightness and a cough for 1 week related to his asth ma. He states his been trying to using his nebulizer treatments as well as inhaler with no relief. (ANGELO RODRIGES APRN) Review of Systems Review of Systems Constitutional: Denies fever or chills [] Eyes: Denies change in visual acuity, redness, or eye pain [] HENT: Denies nasal congestion or sore throat [] Respiratory: Reports cough and chest tightness Cardiovascular: No additional information not addressed in HPI [] GI: Denies abdominal pain, nausea, vomiting, bloody stools or diarrhea [] : Denies dysuria or hematuria [] Musculoskeletal: Denies back pain or joint pain [] Integument: Denies rash or skin lesions [] Neurologic: Denies headache, focal weakness or sensory changes [] All other systems were reviewed and found to be within normal limits, except as documented in this note. (ANGELO RODRIGES APRN) Current Medications Current Medications Current Medications Medications (Trade) Dose Ordered Sig/Yoshi Start Time Stop Time Status Last Admin Dose Admin Albuterol/ Ipratropium (Duoneb) 3 ml 1X ONCE 06/17/19 23:00 06/17/19 23:01 DC 06/17/19 22:59 3 ML Ceftriaxone Sodium (Rocephin Im) 1 gm 1X ONCE 06/17/19 23:30 06/17/19 23:31 DC 06/17/19 23:28 1 GM Doxycycline Hyclate (Vibra-Tab) 100 mg 1X ONCE 06/17/19 23:30 06/17/19 23:31 DC 06/17/19 23:28 100 MG Lidocaine HCl (Xylocaine-Mpf 1% 2ml Vial) 2 ml 1X ONCE 06/17/19 23:30 06/17/19 23:31 DC 06/17/19 23:28 2 ML Methylprednisolone Sodium Succinate (SOLU-Medrol 125MG VIAL) 125 mg 1X ONCE 06/17/19 23:00 06/17/19 23:01 DC 06/17/19 22:52 125 MG (HENRIK VIDES DO) Allergies Allergies Allergies Coded Allergies Type Severity Reaction Last Updated Verified NSAIDS (Non-Steroidal Anti-Inflamma Allergy Severe SOA 10/11/18 Yes (HENRIK VIDES DO) Physical Exam Physical Exam Constitutional: Well developed, well nourished, no acute distress, non-toxic appearance. [] HENT: Normocephalic, atraumatic, bilateral external ears normal, oropharynx moist, no oral exudates, nose normal. [] Eyes: PERRLA, EOMI, conjunctiva normal, no discharge. [] Neck: Normal range of motion, no tenderness, supple, no stridor. [] Cardiovascular:Heart rate regular rhythm, no murmur [] Lungs & Thorax: Diminished breath sounds throughout, no wheezing. Abdomen: Bowel sounds normal, soft, no tenderness, no masses, no pulsatile masses. [] Skin: Warm, dry, no erythema, no rash. [] Back: No tenderness, no CVA tenderness. [] Extremities: No tenderness, no cyanosis, no clubbing, ROM intact, no edema. [] Neurologic: Alert and oriented X 3, normal motor function, normal sensory function, no focal deficits noted. [] Psychologic: Affect normal, judgement normal, mood normal. [] (ANGELO RODRIGES APRN) Current Patient Data Vital Signs Vital Signs Date Time Temp Pulse Resp B/P (MAP) Pulse Ox O2 Delivery O2 Flow Rate FiO2 06/17/19 23:18 88 20 129/85 (100) 100 Room Air 06/17/19 22:35 98.5 98.5 (HENRIK VIDES DO) EKG EKG [] (ANGELO RODRIGES APRN) Radiology/Procedures Radiology/Procedures []PROCEDURE: CHEST PA & LATERAL Two-view chest dated 06/17/2019. Comparison made to April 09, 2019. CLINICAL INDICATION: Cough. FINDINGS: PA and lateral views obtained. Heart and mediastinal contours are stable. There is some patchy increased density at the medial right base. Mild fullness of the bilateral hilum, unchanged. No consolidation or pleural effusion. No pneumothorax. IMPRESSION: Patchy right basilar opacity, atelectasis versus early pneumonia. Electronically signed by: Henrik Cook MD (06/17/2019 10:54 PM) [facility] DICTATED and SIGNED BY: HENRIK COOK MD DATE: 06/17/192253 (ANGELO RODRIGES APRN) Course & Med Decision Making Course & Med Decision Making Pertinent Labs and Imaging studies reviewed. (See chart for details) This is a 33-year-old male patient with history of asthma presenting to the ED today complaining of chest tightness and a cough for 1 week due to his asthma. Chest x-ray interpreted by radiologist was noted for -Patchy right basilar opacity, atelectasis versus early pneumonia. Patient is febrile, O2 sats 96% on room air and above. Was given DuoNeb treatment, Decadron, Rocephin 1 g and started on doxycycline in the ED. Discharged to home on doxycycline follow-up with PCP in the course of this week. Also discharged on prednisone and albuterol F/u with PCP in the course of this week. (ANGELO RODRIGES APRN) Dragon Disclaimer Dragon Disclaimer This electronic medical record was generated, in whole or in part, using a voice recognition dictation system. (ANGELO RODRIGES APRN) Departure Departure Impression: Primary Impression: Asthma exacerbation Additional Impression: Right middle lobe pneumonia Disposition: 01 HOME, SELF-CARE Condition: STABLE Referrals: NO PCP (PCP) follow up with your doctor in 2 days Patient Instructions: Asthma, Adult, [id number], Pneumonia, Adult, [id number] Additional Instructions: You were evaluated in the emergency room and noted to have possible early right middle lobe pneumonia, we put you on antibiotics, ensure you complete them. Take the prednisone prescribed until completed. Follow-up with your doctor in the course of this week. Use breathing treatments as needed. Scripts Albuterol Sulfate (Proair Hfa) 8.5 Gm Hfa.aer.ad 1 PUFF INH Q4HRS PRN for SHORTNESS OF BREATH, #1 INHALER Prov: ANGELO RODRIGES APRN 06/17/19 Albuterol Sulfate (ALBUTEROL SULFATE NEB SOLN) 1.25 Mg/3 Ml Vial.neb 1 VIAL NEB Q4HRS, #150 ML Prov: ANGELO RODRIGES APRN 06/17/19 Doxycycline Hyclate (DOXYCYCLINE HYCLATE) 100 Mg Tablet 1 TAB PO BID, #14 TAB Prov: ANGELO RODRIGES CARTRIDGE BELT PUNCHER 06/17/19 Prednisone (PREDNISONE) 50 Mg Tablet 1 TAB PO DAILY, #5 TAB Prov: ANGELO RODRIGES IMANI 06/17/19 Attending Signature Attending Signature I have reviewed the PA/SALES ASSISTANT's note and plan of care. I was available for consultation as needed during the patient's visit in the emergency department. I agree with the clinical impression, plan, and disposition. (HENRIK VIDES DO) Problem Qualifiers Primary Impression: Asthma exacerbation Asthma severity: mild Asthma persistence: intermittent Qualified Codes: J45.21 - Mild intermittent asthma with (acute) exacerbation Additional Impression: Right middle lobe pneumonia Pneumonia type: due to unspecified organism Qualified Codes: J18.1 - Lobar pneumonia, unspecified organism ANGELO RODRIGES IMANI Jun 17, 2019 22:42 HENRIK VIDES DO Jun 18, 2019 01:14
--- NOTE | 2019-06-17 22:57 | RAD ---
Two-view chest dated 06/17/2019. Comparison made to April 09, 2019. CLINICAL INDICATION: Cough. FINDINGS: PA and lateral views obtained. Heart and mediastinal contours are stable. There is some patchy increased density at the medial right base. Mild fullness of the bilateral hilum, unchanged. No consolidation or pleural effusion. No pneumothorax. IMPRESSION: Patchy right basilar opacity, atelectasis versus early pneumonia. Electronically signed by: Henrik Cook MD (06/17/2019 10:54 PM) [facility]
[2019-06-17] MEDS ORDERED: methylPREDNISolone SOD SUCC PF 125 MG/2 ML VIAL. IM ONE (23:00)
[2019-06-17] MEDS ORDERED: IPRATRPIUM/ALBUTEROL 0.5/2.5MG 3 ML NEBU. NEB ONE (23:00)
[2019-06-17] MEDS ORDERED: PRED50TA PO (23:15)
[2019-06-17] MEDS ORDERED: ALBU2.5V8 INH (23:15)
[2019-06-17] MEDS ORDERED: DOXY100T PO (23:15)
[2019-06-17] MEDS ORDERED: ALBU1.25 NEB (23:15)
[2019-06-17 23:18] VITALS: BP 129/85
[2019-06-17] MEDS ORDERED: cefTRIAXone IM 1 GM VIAL IM ONE (23:30)
[2019-06-17] MEDS ORDERED: DOXYCYCLINE HYCLATE 100 MG TABLET PO ONE (23:30)
[2019-06-17] MEDS ORDERED: LIDOCAINE 1% PF 2 ML VIAL. INJ ONE (23:30)
== END 2019-06-17 23:36 | disposition home or self-care (01) ==
LOC: ER 22:33
DX: J45.21 Mild intermittent asthma with (acute) exacerbation (principal); J18.1 Lobar pneumonia, unspecified organism; Z88.6 Allergy status to analgesic agent
CPT/HCPCS: 71046; 94640; 96372; 99284; J0696; J2930; J7620

== ENCOUNTER 2020-01-23 18:47 | Emergency (ER) | payer BC ==
[~2020-01-23] VITALS: Ht 175.3 cm; Wt 100.0 kg
[~2020-01-23 18:47] MED LIST changes: +ALBU1.25 NEB; -ALBU2.5V8 IH; +DOXY100T PO; +PROVENTIL HFA6.7 GM IH
[2020-01-23] MEDS ORDERED: LIDO:MAALOX 1:1 20 ML SINGLE DOSE. SWSW ONE (20:00)
--- NOTE | 2020-01-23 20:19 | PHYS DOC ---
Past Medical History Past Medical History: Asthma, Bronchitis, GERD, Sinusitis Additional Past Medical Histor: FREQUENT SINUS INFECTIONS Past Surgical History: Other Additional Past Surgical Histo: NASAL POLYP REMOVAL, rhinoplasty Smoking Status: Never Smoker Alcohol Use: Occasionally Drug Use: None General Adult EDM: Chief Complaint: ASTHMA HPI: HPI: Patient is a 34 year old male with hx of asthma who presents with asthma flare up since yesterday and bloating. Denies any fever. Reports he works for [employer] and he will see his PCP tomorrow and be put on FMLA. Review of Systems: Review of Systems: Constitutional: Denies fever or chills. [] Eyes: Denies change in visual acuity. [] HENT: Denies nasal congestion or sore throat. [] Respiratory: reports asthma flare up Cardiovascular: Denies chest pain or edema. [] GI: Reports bloating. Denies abdominal pain, nausea, vomiting, bloody stools or diarrhea. [] : Denies dysuria. [] Musculoskeletal: Denies back pain or joint pain. [] Integument: Denies rash. [] Neurologic: Denies headache, focal weakness or sensory changes. [] Endocrine: Denies polyuria or polydipsia. [] Lymphatic: Denies swollen glands. [] Psychiatric: Denies depression or anxiety. [] Heart Score: Risk Factors: Risk Factors: DM, Current or recent (<one month) smoker, HTN, HLP, family history of CAD, obesity. Risk Scores: Score 0 - 3: 2.5% MACE over next 6 weeks - Discharge Home Score 4 - 6: 20.3% MACE over next 6 weeks - Admit for Clinical Observation Score 7 - 10: 72.7% MACE over next 6 weeks - Early Invasive Strategies Current Medications: Current Medications Medications (Trade) Dose Ordered Sig/Yoshi Start Time Stop Time Status Last Admin Dose Admin Multi-Ingredient Mouthwash/Gargle (Gi Cocktail) 20 ml 1X ONCE 01/23/20 20:00 01/23/20 20:01 DC 01/23/20 19:46 20 ML Allergies: Allergies: Allergies Coded Allergies Type Severity Reaction Last Updated Verified NSAIDS (Non-Steroidal Anti-Inflamma Allergy Severe SOA 10/11/18 Yes Physical Exam: PE: Constitutional: Well developed, well nourished, no acute distress, non-toxic appearance. [] HENT: Normocephalic, atraumatic, bilateral external ears normal, oropharynx moist, no oral exudates, nose normal. [] Eyes: PERRLA, EOMI, conjunctiva normal, no discharge. [] Neck: Normal range of motion, no tenderness, supple, no stridor. [] Cardiovascular:Heart rate regular rhythm, no murmur [] Lungs & Thorax: Bilateral breath sounds clear to auscultation [] Abdomen: Bowel sounds normal, soft, no tenderness, no masses, no pulsatile masses. [] Skin: Warm, dry, no erythema, no rash. [] Back: No tenderness, no CVA tenderness. [] Extremities: No tenderness, no cyanosis, no clubbing, ROM intact, no edema. [] Neurologic: Alert and oriented X 3, normal motor function, normal sensory function, no focal deficits noted. [] Psychologic: Affect normal, judgement normal, mood normal. [] Current Patient Data: Vital Signs: Vital Signs Date Time Temp Pulse Resp B/P (MAP) Pulse Ox O2 Delivery O2 Flow Rate FiO2 01/23/20 19:07 98.3 101 22 165/79 (107) 93 Room Air 98.3 EKG: EKG: [] Radiology/Procedures: Radiology/Procedures: [] Course & Med Decision Making: Course & Med Decision Making Pertinent Labs and Imaging studies reviewed. (See chart for details) This is a 34 yr old asthma patient presenting for asthma flare up, and bloating. ACute abdominal series xrays are negative. D/c to home. He is seeing his PCP tomorrow for FMLA paperwork. D/c to home on prednisone, albuterol inhaler. Lovely Disclaimer: Lovely Disclaimer: This electronic medical record was generated, in whole or in part, using a voice recognition dictation system. Departure Departure Impression: Primary Impression: Asthma exacerbation Qualified Codes: J45.21 - Mild intermittent asthma with (acute) exacerbation Additional Impression: Abdominal bloating Disposition: HOME, SELF-CARE Condition: STABLE Referrals: NO PCP (PCP) follow up with your doctor tomorrow Patient Instructions: Asthma, Adult, [id number] Additional Instructions: Please use your breathing treatments and prednisone as ordered. Follow up with your doctor tomorrow for FMLA paperwork. Scripts Omeprazole (OMEPRAZOLE) 20 Mg Capsule.dr 1 CAP PO DAILY, #30 CAP 5 Refills Prov: ANGELO RODRIGES APRN 01/23/20 Albuterol Sulfate (ALBUTEROL SULFATE NEB SOLN) 1.25 Mg/3 Ml Vial.neb 1 VIAL NEB Q6HRS, #150 ML Prov: ANGELO RODRIGES APRN 01/23/20 Prednisone (PREDNISONE) 50 Mg Tablet 1 TAB PO DAILY, #5 TAB Prov: ANGELO RODRIGES APRN 01/23/20 ANGELO RODRIGES APRN Jan 23, 2020 20:19
[2020-01-23] MEDS ORDERED: PRED50TA PO (20:29)
[2020-01-23] MEDS ORDERED: OMEP20CA16 PO (20:29)
[2020-01-23] MEDS ORDERED: ALBU1.25 NEB (20:29)
--- NOTE | 2020-01-23 20:41 | RAD ---
Acute Abdominal Series: 01/23/2020 7:34 PM Reason for study: Cough, bloating. Comparison studies: None. Technique: Frontal view of the chest was obtained along with supine and upright views of the abdomen. Findings: Nonobstructive bowel gas pattern. No air fluid levels or free air. The lungs are clear without acute consolidative opacity. No pleural effusion or pneumothorax. The cardiac and mediastinal contours are normal. Visualized osseous structures are intact. IMPRESSION: 1. Nonobstructed bowel gas pattern. 2. No acute cardiopulmonary findings. Electronically signed by: Nichelle Liao MD (01/23/2020 8:38 PM) [facility]
[2020-01-23 20:53] VITALS: BP 135/84
== END 2020-01-23 20:55 | disposition home or self-care (01) ==
LOC: ER 18:47
DX: J45.21 Mild intermittent asthma with (acute) exacerbation (principal); R14.0 Abdominal distension (gaseous); J45.909 Unspecified asthma, uncomplicated; K21.9 Gastro-esophageal reflux disease without esophagitis; Z98.890 Other specified postprocedural states; Z88.4 Allergy status to anesthetic agent
CPT/HCPCS: 74022; 99283

== ENCOUNTER 2020-05-27 21:20 | Emergency (ER) | payer SELFPAY ==
[~2020-05-27] VITALS: Ht 172.7 cm; Wt 106.8 kg
[~2020-05-27 21:20] MED LIST changes: +OMEP20CA16 PO
[2020-05-27 23:45] VITALS: BP 152/74
--- NOTE | 2020-05-27 23:51 | PHYS DOC ---
Past Medical History Past Medical History: Asthma, Bronchitis, GERD, Sinusitis Additional Past Medical Histor: FREQUENT SINUS INFECTIONS Past Surgical History: Other Additional Past Surgical Histo: NASAL POLYP REMOVAL, rhinoplasty Smoking Status: Never Smoker Alcohol Use: Occasionally Drug Use: None General Adult EDM: Chief Complaint: ABDOMINAL PAIN HPI: HPI: The history was obtained from the patient. Patient is a 34-year-old male with PMH GERD, asthma who presents with a chief complaint of epigastric abdominal pain intermittently over the past several days. He states that he has had a burning sensation in his epigastric region that radiates to his chest. He states that he has had increased belching and metallic taste in his mouth. He also notes that he thinks his GERD is exacerbating his asthma. He notes he has been using his inhaler more frequently than normal. He does feel that he is wheezing. Denies any history of abdominal surgeries. Denies shortness of breath or fever. Notes a mild dry cough he thinks is due to his asthma. He does note that he tried gas medicine at home with minimal relief. He states he has having normal bowel movements however. Endorses passing flatus. Denies testicular pain. Denies alcohol or drug abuse. No other complaints. Review of Systems: Review of Systems: Constitutional: Denies fever or chills. [] Eyes: Denies change in visual acuity. [] HENT: Denies nasal congestion or sore throat. [] Respiratory: Positive for wheezing Cardiovascular: Denies chest pain or edema. [] GI: Positive for abdominal pain : Denies dysuria. [] Musculoskeletal: Denies back pain or joint pain. [] Integument: Denies rash. [] Neurologic: Denies headache, focal weakness or sensory changes. [] Endocrine: Denies polyuria or polydipsia. [] Lymphatic: Denies swollen glands. [] Psychiatric: Denies depression or anxiety. [] Heart Score: Risk Factors: Risk Factors: DM, Current or recent (<one month) smoker, HTN, HLP, family history of CAD, obesity. Risk Scores: Score 0 - 3: 2.5% MACE over next 6 weeks - Discharge Home Score 4 - 6: 20.3% MACE over next 6 weeks - Admit for Clinical Observation Score 7 - 10: 72.7% MACE over next 6 weeks - Early Invasive Strategies Allergies: Allergies: Allergies Coded Allergies Type Severity Reaction Last Updated Verified NSAIDS (Non-Steroidal Anti-Inflamma Allergy Severe SOA 10/11/18 Yes Physical Exam: PE: Constitutional: Well developed, well nourished, no acute distress, non-toxic appearance. [] HENT: Normocephalic, atraumatic, bilateral external ears normal, oropharynx moist, no oral exudates, nose normal. [] Eyes: PERRLA, EOMI, conjunctiva normal, no discharge. [] Neck: Normal range of motion, no tenderness, supple, no stridor. [] Cardiovascular:Heart rate regular rhythm, no murmur [] Lungs & Thorax: Mild end expiratory wheeze appreciated bilaterally. Speaking in full sentences. No tachypnea. No accessory muscle usage noted. Abdomen: Mild diffuse tenderness palpation worse in the epigastric region. No involuntary guarding or rigidity noted. No acute peritonitis. Skin: Warm, dry, no erythema, no rash. [] Back: No tenderness, no CVA tenderness. [] Extremities: No tenderness, no cyanosis, no clubbing, ROM intact, no edema. [] Neurologic: Alert and oriented X 3, normal motor function, normal sensory function, no focal deficits noted. [] Psychologic: Affect normal, judgement normal, mood normal. [] Current Patient Data: Labs: Laboratory Tests Test 05/28/20 00:10 White Blood Count 8.8 x10^3/uL Red Blood Count 4.62 x10^6/uL Hemoglobin 13.4 g/dL Hematocrit 39.5 % Mean Corpuscular Volume 85 fL Mean Corpuscular Hemoglobin 29 pg Mean Corpuscular Hemoglobin Concent 34 g/dL Red Cell Distribution Width 12.3 % Platelet Count 397 x10^3/uL Neutrophils (%) (Auto) 37 % Lymphocytes (%) (Auto) 41 % Monocytes (%) (Auto) 9 % Eosinophils (%) (Auto) 12 % Basophils (%) (Auto) 1 % Neutrophils # (Auto) 3.3 x10^3/uL Lymphocytes # (Auto) 3.6 x10^3/uL Monocytes # (Auto) 0.8 x10^3/uL Eosinophils # (Auto) 1.0 x10^3/uL Basophils # (Auto) 0.1 x10^3/uL Sodium Level 143 mmol/L Potassium Level 4.0 mmol/L Chloride Level 108 mmol/L Carbon Dioxide Level 27 mmol/L Anion Gap 8 Blood Urea Nitrogen 18 mg/dL Creatinine 1.2 mg/dL Estimated GFR (Cockcroft-Gault) 84.4 BUN/Creatinine Ratio 15 Glucose Level 102 mg/dL Calcium Level 8.8 mg/dL Total Bilirubin 0.3 mg/dL Aspartate Amino Transf (AST/SGOT) < 5 U/L Alanine Aminotransferase (ALT/SGPT) 11 U/L Alkaline Phosphatase 59 U/L Total Protein 7.3 g/dL Albumin 3.5 g/dL Albumin/Globulin Ratio 0.9 Lipase 279 U/L Current Medications Medications (Trade) Dose Ordered Sig/Yoshi Route PRN Reason Start Time Stop Time Status Last Admin Dose Admin Famotidine (Pepcid) 20 mg 1X ONCE PO 05/28/20 00:15 05/28/20 00:16 DC 05/28/20 00:20 Ondansetron HCl (Zofran Odt) 4 mg 1X ONCE PO 05/28/20 00:15 05/28/20 00:16 DC 05/28/20 00:20 Al Hydroxide/Mg Hydroxide (Mylanta Plus Xs) 30 ml 1X ONCE PO 05/28/20 00:15 05/28/20 00:16 DC 05/28/20 00:19 Prednisone (Prednisone) 60 mg 1X ONCE PO 05/28/20 00:15 05/28/20 00:16 DC 05/28/20 00:20 Albuterol/ Ipratropium (Duoneb) 9 ml 1X ONCE NEB 05/28/20 00:15 05/28/20 00:16 DC 05/28/20 00:55 Vital Signs: Vital Signs Date Time Temp Pulse Resp B/P (MAP) Pulse Ox O2 Delivery O2 Flow Rate FiO2 05/27/20 22:09 98.7 107 20 114/76 (89) 96 Room Air 98.7 EKG: EKG: [] Radiology/Procedures: Radiology/Procedures: [] Course & Med Decision Making: Course & Med Decision Making Pertinent Labs and Imaging studies reviewed. (See chart for details) Patient is a well-appearing 34-year-old male who presents with chief complaint of epigastric burning discomfort as well as wheezing. Initial vital signs unremarkable. Exam noted above. Chest x-ray was deferred given the patient shows no signs of hypoxia, leukocytosis, or fever and has a history of asthma. His wheezing did resolve with DuoNeb breathing treatments and oral prednisone. His epigastric discomfort also resolved with oral Maalox and Pepcid. On repeat abdominal examination abdomen is benign. Labs were unremarkable. I do feel he is appropriate for outpatient management and discharge home. I do feel is reasonable to defer CAT scan imaging given his benign laboratory analysis and vital signs. He is agreeable this plan. He states he is tried omeprazole at home with minimal relief. He will be discharged home with Carafate. He also given a short course of oral steroids and nebulizer solution for home. Return precautions discussed and understood. Instructed to follow-up with his primary care physician in the next 2 to 3 days. Stable for discharge home. Lovely Disclaimer: Lovely Disclaimer: This electronic medical record was generated, in whole or in part, using a voice recognition dictation system. Departure Departure Impression: Primary Impression: Epigastric abdominal pain Additional Impression: Wheeze Disposition: 01 HOME, SELF-CARE Condition: GOOD Referrals: UNKNOWN PCP NAME (PCP) Patient Instructions: Heartburn Additional Instructions: [facility] [address] [place] [address] [facility] [address] [place] [address] [facility] [address] [facility] [place] [address] [facility] & [facility] [address] [place] [address] [facility] [address] [place] [address] [facility] [address] [place] [address] [facility] [address] [place] [address] [facility] [address] [place] [address] [facility] [address] [place] [address] [facility] [address] [place] [address] Scripts Albuterol Sulfate (ALBUTEROL SULFATE NEB SOLN) 1.25 Mg/3 Ml Vial.neb 1 VIAL NEB Q6HRS, #150 ML Prov: SHERRY PANIAGUA DO 05/28/20 Sucralfate (CARAFATE) 1 Gm Tablet 1 TAB PO QID for 14 Days, #56 TAB 0 Refills Do not take this medication 20 minutes prior to or 20 minutes after other medications. Prov: SHERRY PANIAGUA DO 05/28/20 Prednisone (PREDNISONE) 20 Mg Tablet 60 MG PO DAILY for 4 Days, #12 TAB Prov: SHERRY PANIAGUA DO 05/28/20 Justicifation of Admission Dx: Justifications for Admission: Justification of Admission Dx: N/A SHERRY PANIAGUA DO May 27, 2020 23:51
[2020-05-28] MEDS ORDERED: IPRATRPIUM/ALBUTEROL 0.5/2.5MG 3 ML NEBU. NEB ONE (00:15)
[2020-05-28] MEDS ORDERED: MAG HYDROX/ALUMINUM HYD/SIMETH 30 ML ORAL.SUSP PO ONE (00:15)
[2020-05-28] MEDS ORDERED: predniSONE 20 MG TABLET PO ONE (00:15)
[2020-05-28] MEDS ORDERED: FAMOTIDINE 20 MG TABLET. PO ONE (00:15)
[2020-05-28] MEDS ORDERED: ONDANSETRON ODT 4 MG TAB.RAPDIS. PO ONE (00:15)
[2020-05-28 00:20] LABS: BASO # 0.1 x10^3/uL (0.0-0.2); BASO % 1 % (0-3); EOS % 12 % (0-3); HEMATOCRIT 39.5 % (39.0-53.0); HEMOGLOBIN 13.4 g/dL (13.0-17.5); LYMPH # 3.6 x10^3/uL (1.0-4.8); LYMPH % 41 % (24-48); MEAN CORPUSCULAR HEMOGLOBIN 29 pg (25-35); MEAN CORPUSCULAR HGB CONC 34 g/dL (31-37); MEAN CORPUSCULAR VOLUME 85 fL (79-100); MONO # 0.8 x10^3/uL (0.0-1.1); MONO % 9 % (0-9); NEUT # 3.3 x10^3/uL (1.8-7.7); NEUT % 37 % (31-73); PLATELET COUNT 397 x10^3/uL (140-400); RED BLOOD COUNT 4.62 x10^6/uL (4.30-5.70); RED CELL DISTRIBUTION WIDTH 12.3 % (11.5-14.5); WHITE BLOOD COUNT 8.8 x10^3/uL (4.0-11.0)
[2020-05-28 00:27] LABS: ANION GAP 8 (6-14); BLOOD UREA NITROGEN 18 mg/dL (8-26); BUN/CREATININE RATIO 15 (6-20); CALCIUM 8.8 mg/dL (8.5-10.1); CARBON DIOXIDE 27 mmol/L (21-32); CHLORIDE 108 mmol/L (98-107); CREATININE 1.2 mg/dL (0.7-1.3); GFR 84.4; GLUCOSE 102 mg/dL (70-99); SODIUM 143 mmol/L (136-145)
[2020-05-28 00:33] LABS: ALBUMIN 3.5 g/dL (3.4-5.0); ALBUMIN/GLOBULIN RATIO 0.9 (1.0-1.7); ALK PHOS 59 U/L (46-116); ALT (SGPT) 11 U/L (16-63); LIPASE 279 U/L (73-393); TOTAL BILIRUBIN 0.3 mg/dL (0.2-1.0); TOTAL PROTEIN 7.3 g/dL (6.4-8.2)
[2020-05-28 00:38] LABS: AST (SGOT) < 5 U/L (15-37)
[2020-05-28] MEDS ORDERED: SUCR1TAB35 PO (01:18)
[2020-05-28] MEDS ORDERED: ALBU1.25 NEB (01:18)
[2020-05-28] MEDS ORDERED: PRED20TA PO (01:18)
== END 2020-05-28 01:30 | disposition home or self-care (01) ==
LOC: ER 21:20
DX: R10.13 Epigastric pain (principal); J45.909 Unspecified asthma, uncomplicated; R05 Cough; K21.9 Gastro-esophageal reflux disease without esophagitis; Z88.6 Allergy status to analgesic agent
CPT/HCPCS: 36415; 80053; 83690; 85025; 94640; 99284; J7512

== ENCOUNTER 2020-06-13 02:32 | Emergency (ER) | payer SELFPAY ==
[~2020-06-13] VITALS: Ht 170.2 cm; Wt 106.8 kg
[~2020-06-13 02:32] MED LIST changes: +SUCR1TAB35 PO
--- NOTE | 2020-06-13 03:18 | PHYS DOC ---
Past Medical History Past Medical History: Asthma, Bronchitis, GERD, Sinusitis Additional Past Medical Histor: FREQUENT SINUS INFECTIONS Past Surgical History: Other Additional Past Surgical Histo: NASAL POLYP REMOVAL, rhinoplasty Smoking Status: Never Smoker Alcohol Use: Occasionally Drug Use: None General Adult EDM: Chief Complaint: ABDOMINAL PAIN HPI: HPI: The history was obtained from the patient. Patient is a 34-year-old male with PMH asthma, GERD who presents with a chief complaint of epigastric abdominal discomfort. Patient states he is had burning epigastric abdominal pain intermittently over the past 2 weeks. He states he has not eaten in 36 hours due to the discomfort. He states he has tried multiple [id number] medications without relief. He does note no vomiting or nausea. He does note metallic taste in his mouth and increased belching. He states that his GERD seems to trigger his asthma. He states he has had wheezing over the past 24 hours. He has been using his home inhaler without relief. Denies chest pain. Denies syncope. Denies any previous abdominal surgical history. States he does not typically eat spicy foods. Has not seen a precipitate washer. He states he does not take Prilosec daily. Denies alcohol usage or tobacco abuse. No other complaints. Review of Systems: Review of Systems: Constitutional: Denies fever or chills. [] Eyes: Denies change in visual acuity. [] HENT: Denies nasal congestion or sore throat. [] Respiratory: Positive for wheezing Cardiovascular: Denies chest pain or edema. [] GI: Positive for abdominal pain : Denies dysuria. [] Musculoskeletal: Denies back pain or joint pain. [] Integument: Denies rash. [] Neurologic: Denies headache, focal weakness or sensory changes. [] Endocrine: Denies polyuria or polydipsia. [] Lymphatic: Denies swollen glands. [] Psychiatric: Denies depression or anxiety. [] Heart Score: Risk Factors: Risk Factors: DM, Current or recent (<one month) smoker, HTN, HLP, family history of CAD, obesity. Risk Scores: Score 0 - 3: 2.5% MACE over next 6 weeks - Discharge Home Score 4 - 6: 20.3% MACE over next 6 weeks - Admit for Clinical Observation Score 7 - 10: 72.7% MACE over next 6 weeks - Early Invasive Strategies Current Medications: Current Medications Medications (Trade) Dose Ordered Sig/Yoshi Start Time Stop Time Status Last Admin Dose Admin Albuterol/ Ipratropium (Duoneb) 9 ml 1X ONCE 06/13/20 03:30 06/13/20 03:31 Famotidine (Pepcid) 20 mg 1X ONCE 06/13/20 03:30 06/13/20 03:31 Multi-Ingredient Mouthwash/Gargle (Gi Cocktail) 20 ml 1X ONCE 06/13/20 03:30 06/13/20 03:31 Pantoprazole Sodium (Protonix) 40 mg 1X ONCE 06/13/20 03:30 06/13/20 03:31 Allergies: Allergies: Allergies Coded Allergies Type Severity Reaction Last Updated Verified NSAIDS (Non-Steroidal Anti-Inflamma Allergy Severe SOA 10/11/18 Yes Physical Exam: PE: Constitutional: Well developed, well nourished, no acute distress, non-toxic appearance. [] HENT: Normocephalic, atraumatic, bilateral external ears normal, oropharynx moist, no oral exudates, nose normal. [] Eyes: PERRLA, EOMI, conjunctiva normal, no discharge. [] Neck: Normal range of motion, no tenderness, supple, no stridor. [] Cardiovascular:Heart rate regular rhythm, no murmur [] Lungs & Thorax: Faint end expiratory wheezes appreciated. Speaking in full sentences. Not tachypneic. No accessory muscle usage noted. Abdomen: Soft, nontender, nonacute abdomen. No involuntary guarding or rigidity noted. No acute peritonitis. Skin: Warm, dry, no erythema, no rash. [] Back: No tenderness, no CVA tenderness. [] Extremities: No tenderness, no cyanosis, no clubbing, ROM intact, no edema. [] Neurologic: Alert and oriented X 3, normal motor function, normal sensory function, no focal deficits noted. [] Psychologic: Affect normal, judgement normal, mood normal. [] Current Patient Data: Labs: Laboratory Tests Test 06/13/20 03:10 White Blood Count 9.3 x10^3/uL Red Blood Count 4.65 x10^6/uL Hemoglobin 13.3 g/dL Hematocrit 40.1 % Mean Corpuscular Volume 86 fL Mean Corpuscular Hemoglobin 29 pg Mean Corpuscular Hemoglobin Concent 33 g/dL Red Cell Distribution Width 12.2 % Platelet Count 304 x10^3/uL Neutrophils (%) (Auto) 33 % Lymphocytes (%) (Auto) 44 % Monocytes (%) (Auto) 8 % Eosinophils (%) (Auto) 14 % Basophils (%) (Auto) 1 % Neutrophils # (Auto) 3.1 x10^3/uL Lymphocytes # (Auto) 4.1 x10^3/uL Monocytes # (Auto) 0.7 x10^3/uL Eosinophils # (Auto) 1.3 x10^3/uL Basophils # (Auto) 0.1 x10^3/uL Sodium Level 138 mmol/L Potassium Level 3.7 mmol/L Chloride Level 105 mmol/L Carbon Dioxide Level 25 mmol/L Anion Gap 8 Blood Urea Nitrogen 12 mg/dL Creatinine 0.9 mg/dL Estimated GFR (Cockcroft-Gault) 117.6 BUN/Creatinine Ratio 13 Glucose Level 91 mg/dL Calcium Level 9.0 mg/dL Total Bilirubin 0.4 mg/dL Aspartate Amino Transf (AST/SGOT) 21 U/L Alanine Aminotransferase (ALT/SGPT) 37 U/L Alkaline Phosphatase 69 U/L Total Protein 7.3 g/dL Albumin 3.5 g/dL Albumin/Globulin Ratio 0.9 Lipase 117 U/L Current Medications Medications (Trade) Dose Ordered Sig/Yoshi Route PRN Reason Start Time Stop Time Status Last Admin Dose Admin Famotidine (Pepcid) 20 mg 1X ONCE PO 06/13/20 03:30 06/13/20 03:31 DC 06/13/20 03:32 Albuterol/ Ipratropium (Duoneb) 9 ml 1X ONCE NEB 06/13/20 03:30 06/13/20 03:31 DC 06/13/20 03:17 Pantoprazole Sodium (Protonix) 40 mg 1X ONCE PO 06/13/20 03:30 06/13/20 03:31 DC 06/13/20 03:32 Multi-Ingredient Mouthwash/Gargle (Gi Cocktail) 20 ml 1X ONCE SWSW 06/13/20 03:30 06/13/20 03:31 DC 06/13/20 03:32 Vital Signs: Vital Signs Date Time Temp Pulse Resp B/P (MAP) Pulse Ox O2 Delivery O2 Flow Rate FiO2 06/13/20 03:13 95 Room Air EKG: EKG: [] Radiology/Procedures: Radiology/Procedures: [] Course & Med Decision Making: Course & Med Decision Making Pertinent Labs and Imaging studies reviewed. (See chart for details) [] Patient is an overall well-appearing 34-year-old male who presents with chief complaint of epigastric abdominal discomfort and wheezing. Initial vital signs unremarkable. Exam overall reassuring. Benign abdomen. Basic labs were obtained and were grossly unremarkable. He was given breathing treatments for his wheezing. Patient was treated symptomatically for dyspepsia. On repeat examination his wheezing has resolved and he states his abdominal pain is improved significantly. I do not feel advanced imaging is indicated as the patient's abdomen remains benign and he feels much better. He has tolerated p.o. On chart review patient was recently discharged home with Carafate. He will be discharged home this time with Prilosec. He will be given a GI refer ral. He also be discharged home with short course of steroids and home albuterol for his breathing. Return precautions discussed and understood. Instructed to follow-up with his primary care physician in 2 to 3 days. Patient agreeable to plan. Lovely Disclaimer: Lovely Disclaimer: This electronic medical record was generated, in whole or in part, using a voice recognition dictation system. Departure Departure Impression: Primary Impression: Abdominal pain Qualified Codes: R10.13 - Epigastric pain Additional Impression: Wheeze Disposition: 01 HOME, SELF-CARE Condition: STABLE Referrals: UNKNOWN PCP NAME (PCP) Patient Instructions: Diet for Gastroesophageal Reflux Disease, Adult Additional Instructions: Please follow-up with your primary care physician in the next 2 to 3 days. [facility] [address] [place] [address] [facility] [address] [place] [address] [facility] [address] [facility] [place] [address] [facility] [address] [place] [address] [facility] [address] [place] [address] [facility] [address] [place] [address] [facility] [address] [place] [address] [facility] [address] [place] [address] [facility] [address] [place] [address] [facility] [address] [place] [address] Scripts Prednisone (PREDNISONE) 20 Mg Tablet 60 MG PO DAILY for 4 Days, #12 TAB Prov: SHERRY PANIAGUA DO 06/13/20 Albuterol Sulfate (ALBUTEROL SULFATE CONC NEB SOLN) 2.5 Mg/0.5 Ml Vial.neb 1 VIAL NEB Q6HRS, #2 VIAL 5 Refills Prov: SHERRY PANIAGUA DO 06/13/20 Albuterol Sulfate (Proair Hfa) 8.5 Gm Hfa.aer.ad 2 PUFF IH PRN Q4-6HRS PRN for wheezing for 21 Days, #1 INHALER 0 Refills Prov: SHERRY PANIAGUA DO 06/13/20 Omeprazole (OMEPRAZOLE) 20 Mg Tablet.dr 1 TAB PO BID for 14 Days, #28 TAB 1 Refill Prov: SHERRY PANIAGUA DO 06/13/20 Justicifation of Admission Dx: Justifications for Admission: Justification of Admission Dx: N/A SHERRY PANIAGUA DO Jun 13, 2020 03:18
[2020-06-13 03:23] LABS: BASO # 0.1 x10^3/uL (0.0-0.2); BASO % 1 % (0-3); EOS # 1.3 x10^3/uL (0.0-0.7); EOS % 14 % (0-3); HEMATOCRIT 40.1 % (39.0-53.0); HEMOGLOBIN 13.3 g/dL (13.0-17.5); LYMPH # 4.1 x10^3/uL (1.0-4.8); LYMPH % 44 % (24-48); MEAN CORPUSCULAR HEMOGLOBIN 29 pg (25-35); MEAN CORPUSCULAR HGB CONC 33 g/dL (31-37); MEAN CORPUSCULAR VOLUME 86 fL (79-100); MONO # 0.7 x10^3/uL (0.0-1.1); MONO % 8 % (0-9); NEUT # 3.1 x10^3/uL (1.8-7.7); NEUT % 33 % (31-73); PLATELET COUNT 304 x10^3/uL (140-400); RED BLOOD COUNT 4.65 x10^6/uL (4.30-5.70); RED CELL DISTRIBUTION WIDTH 12.2 % (11.5-14.5); WHITE BLOOD COUNT 9.3 x10^3/uL (4.0-11.0)
[2020-06-13] MEDS ORDERED: LIDO:MAALOX 1:1 20 ML SINGLE DOSE. SWSW ONE (03:30)
[2020-06-13] MEDS ORDERED: IPRATRPIUM/ALBUTEROL 0.5/2.5MG 3 ML NEBU. NEB ONE (03:30)
[2020-06-13] MEDS ORDERED: FAMOTIDINE 20 MG TABLET. PO ONE (03:30)
[2020-06-13] MEDS ORDERED: PANTOPRAZOLE 40 MG TABLET.DR. PO ONE (03:30)
[2020-06-13 03:39] LABS: CREATININE 0.9 mg/dL (0.7-1.3); GFR 117.6; POTASSIUM 3.7 mmol/L (3.5-5.1)
[2020-06-13 03:45] LABS: ALBUMIN 3.5 g/dL (3.4-5.0); ALBUMIN/GLOBULIN RATIO 0.9 (1.0-1.7); TOTAL BILIRUBIN 0.4 mg/dL (0.2-1.0); TOTAL PROTEIN 7.3 g/dL (6.4-8.2)
[2020-06-13] MEDS ORDERED: ALBU2.5V8 IH (03:53)
[2020-06-13] MEDS ORDERED: PRED20TA PO (03:53)
[2020-06-13] MEDS ORDERED: ALBU2.5V14 NEB (03:53)
[2020-06-13] MEDS ORDERED: OMEP20TA8 PO (03:53)
[2020-06-13 04:30] VITALS: BP 130/66
[2020-06-13 05:34] LABS: % BASOS 1 % (0-3); % EOS 11 % (0-5); % LYMPHS 45 % (24-48); % MONOS 6 % (0-10); % SEGS 37 % (35-66); PLT ESTIMATE ADEQUATE (ADEQUATE)
== END 2020-06-13 04:35 | disposition home or self-care (01) ==
LOC: ER 02:32
DX: R10.13 Epigastric pain (principal); J45.909 Unspecified asthma, uncomplicated; K21.9 Gastro-esophageal reflux disease without esophagitis; Z88.6 Allergy status to analgesic agent
CPT/HCPCS: 36415; 80053; 83690; 85007; 85025; 94640; 99285-25